=== PATIENT | female | born 1995 | race Caucasian/White ===

== ENCOUNTER → 2017-10-07 | Outpatient (REF) | payer OTHER ==
[2017-10-07 15:07] LABS: CHLAMYDIA DNA AMPLIFICATION NEGATIVE (NEGATIVE); GC DNA AMPLIFICATION NEGATIVE (NEGATIVE)
== END ==
LOC: M LAB REF 13:16
DX: N76.0 Acute vaginitis (principal)

== ENCOUNTER → 2018-03-02 | Outpatient (CLI) | payer OTHER | LOC: M SLEEP 19:40 | DX: R06.83 Snoring (principal) | CPT/HCPCS: 95810 ==

== ENCOUNTER → 2018-06-05 | Outpatient (REF) | payer OTHER ==
[2018-06-05 15:17] LABS: CHLAMYDIA DNA AMPLIFICATION NEGATIVE (NEGATIVE); GC DNA AMPLIFICATION NEGATIVE (NEGATIVE)
== END ==
LOC: M LAB REF 13:02
DX: Z11.3 Encounter for screening for infections with a predominantly sexual mode of transmission (principal)
CPT/HCPCS: 87591

== ENCOUNTER → 2018-10-13 | Outpatient (CLI) | payer OTHER ==
--- NOTE | 2018-10-13 11:11 | REP ---
Hepatobiliary scan and gallbladder ejection fraction: History: Mid epigastric pain. Nausea and diarrhea. Technique: 6.6 mCi of technetium-99m mebrofenin was injected and sequential anterior images are acquired. 65 minutes after the mebrofenin injection, the patient consumed 8 ounces Ensure and an additional 60 minutes of imaging was acquired. Regions of interest are plotted around the gallbladder. Findings: The initial hepatocellular parenchymal uptake phase is normal and homogeneous. Intra- and extra-hepatic bile ducts and duodenum are labeled by the 10 -minute image. The gallbladder is first labeled on the 10 -minute image. There is normal washout from the liver parenchyma into the gallbladder and small intestine on subsequent images. The gallbladder ejection fraction is 46 %. Values greater than 35 % are considered normal with this technique. Impression: Normal hepatobiliary scan and normal gallbladder ejection fraction. Electronically Signed by Sang Hu MD 10/13/2018 11:03 A
== END ==
LOC: M RAD 08:24
PROVIDERS: ATTEND Family Medicine
DX: R10.13 Epigastric pain (principal); R11.0 Nausea; R19.7 Diarrhea, unspecified; K83.8 Other specified diseases of biliary tract
CPT/HCPCS: 78227; A9537; J2805

== ENCOUNTER → 2020-12-02 | Outpatient (REF) | payer OTHER ==
[2020-12-02 18:45] LABS: FOLLICLE STIMULATING HORMONE 4.4 mIU/mL; FREE T4 0.86 NG/DL (0.76-1.46); LUTEINIZING HORMONE 13.4 mIU/mL; THYROID STIMULATING HORMONE 1.59 uIU/ML (0.358-3.740)
[2020-12-09 19:07] LABS: 17 HYDROXY PROGESTERONE 136 ng/dL (.); TESTOSTERONE FREE (DIRECT) 2.1 pg/mL (0.0-4.2)
== END ==
LOC: M PLALAB 14:45
PROVIDERS: ATTEND Advanced Practice Midwife
DX: Z12.4 Encounter for screening for malignant neoplasm of cervix (principal); Z31.9 Encounter for procreative management, unspecified; R87.612 Low grade squamous intraepithelial lesion on cytologic smear of cervix (LGSIL)
CPT/HCPCS: 36415; 82627; 83001; 83002; 83498; 84402; 84403; 84439; 84443; G0123; G0463

== ENCOUNTER → 2021-09-11 | Outpatient (CLI) | payer OTHER ==
[~2021-09-11] MED LIST: DULO1CAP6; IRON27TA2 PO; OMEP40CA5 PO; SUCR1TAB56 PO; VITA500C24 PO
== END ==
LOC: M LABSMTC 09:08
PROVIDERS: ATTEND Anesthesiology
DX: Z01.812 Encounter for preprocedural laboratory examination (principal); Z20.822 Contact with and (suspected) exposure to COVID-19

== ENCOUNTER → 2021-09-16 | Day surgery (SDC) | payer OTHER ==
[~2021-09-16] VITALS: Ht 160 cm; Wt 103.4 kg
[~2021-09-16] MED LIST changes: +NS 1,000 ML IV ONE
== END | disposition home or self-care (01) ==
LOC: M OPP 10:34
PROVIDERS: ATTEND Internal Medicine Gastroenterology
DX: R12 Heartburn (principal); Z53.8 Procedure and treatment not carried out for other reasons

== ENCOUNTER → 2021-10-21 | Outpatient (CLI) | payer OTHER ==
[~2021-10-21] MED LIST changes: -NS 1,000 ML IV ONE
[2021-10-21 13:42] LABS: HEMOGLOBIN 12.9 g/dl (12.0-15.5); MEAN CORPUSCULAR HEMOGLOBIN 27.4 pg (27.0-33.0); MEAN CORPUSCULAR HGB CONC 32.3 g/dl (32.0-36.5); MEAN CORPUSCULAR VOLUME 85.1 fl (80.0-96.0); PLATELET COUNT, AUTOMATED 326 10^3/uL (150-450); WHITE BLOOD COUNT 9.2 10^3/uL (4.0-10.0)
[2021-10-21 14:53] LABS: HEPATITIS C VIRUS ABY INDEX 0.1 INDEX (<0.8); HIV 1&2 SCREEN CENTAUR NEGATIVE (NEGATIVE)
[2021-10-21 23:18] LABS: GC DNA AMPLIFICATION NEGATIVE (NEGATIVE)
== END ==
LOC: M PLALAB 09:10
PROVIDERS: ATTEND Specialist
DX: Z34.01 Encounter for supervision of normal first pregnancy, first trimester (principal); Z36.89 Encounter for other specified antenatal screening

== ENCOUNTER → 2021-12-23 | Outpatient (CLI) | payer OTHER | LOC: M WHC 12:09 | PROVIDERS: ATTEND Specialist | DX: Z34.02 Encounter for supervision of normal first pregnancy, second trimester (principal); Z3A.19 19 weeks gestation of pregnancy ==

== ENCOUNTER → 2022-02-03 | Outpatient (CLI) | payer OTHER ==
[2022-02-03 13:36] LABS: HEMATOCRIT 35.7 % (36.0-47.0); HEMOGLOBIN 11.6 g/dl (12.0-15.5); MEAN CORPUSCULAR HEMOGLOBIN 27.3 pg (27.0-33.0); MEAN CORPUSCULAR HGB CONC 32.5 g/dl (32.0-36.5); PLATELET COUNT, AUTOMATED 313 10^3/uL (150-450); RED BLOOD COUNT 4.25 10^6/uL (4.00-5.40); WHITE BLOOD COUNT 12.3 10^3/uL (4.0-10.0)
== END ==
LOC: M PLALAB 09:51
PROVIDERS: ATTEND Obstetrics & Gynecology
DX: Z34.02 Encounter for supervision of normal first pregnancy, second trimester (principal); Z3A.25 25 weeks gestation of pregnancy

== ENCOUNTER → 2022-02-03 | Outpatient (CLI) | payer OTHER | LOC: M WHC 08:34 | PROVIDERS: ATTEND Obstetrics & Gynecology | DX: Z34.02 Encounter for supervision of normal first pregnancy, second trimester (principal); Z3A.25 25 weeks gestation of pregnancy ==

== ENCOUNTER → 2022-04-21 | Outpatient (REF) | payer OTHER | LOC: M SFHCWAGY 16:46 | PROVIDERS: ATTEND Obstetrics & Gynecology | DX: Z34.93 Encounter for supervision of normal pregnancy, unspecified, third trimester (principal) ==

== ENCOUNTER 2022-05-12 11:11 | Inpatient (IN) | payer OTHER ==
[2022-05-12] VITALS (16 sets, daily range): BP systolic 125–188; BP diastolic 73–99
[~2022-05-12] VITALS: Ht 160 cm; Wt 112.7 kg
[2022-05-12] MEDS ORDERED: CARA1TAB6 PO (11:53)
[2022-05-12] MEDS ORDERED: SERT-141 PO (11:54)
[2022-05-12] MEDS ORDERED: PRENTAB9 PO (11:54)
[2022-05-12 12:39] LABS: HEMATOCRIT 40.7 % (36.0-47.0); HEMOGLOBIN 13.3 g/dl (12.0-15.5); MEAN CORPUSCULAR HEMOGLOBIN 26.3 pg (27.0-33.0); MEAN CORPUSCULAR HGB CONC 32.7 g/dl (32.0-36.5); MEAN CORPUSCULAR VOLUME 80.4 fl (80.0-96.0); PLATELET COUNT, AUTOMATED 273 10^3/uL (150-450); RED BLOOD COUNT 5.06 10^6/uL (4.00-5.40); WHITE BLOOD COUNT 11.6 10^3/uL (4.0-10.0)
[2022-05-12 13:17] LABS: ALT/SGPT 18 U/L (12-78); BILIRUBIN,TOTAL 0.3 MG/DL (0.2-1.0); CREATININE FOR GFR 0.69 MG/DL (0.55-1.30); GLOMERULAR FILTRATION RATE > 60.0 (>60); LDH LACTATE DEHYDROGENASE 175 U/L (84-246)
[2022-05-12 13:33] LABS: TOTAL PROTEIN,RANDOM URINE 30.1 MG/DL (0.0-12.0)
[2022-05-12] MEDS ORDERED: CARBOPROST TROMETHAMINE 250 MCG/ML AMP IM PRN (15:15)
[2022-05-12] MEDS ORDERED: TRANEXAMIC ACID INJection 1,000 MG in NS 100 ML IV PRN (15:15)
[2022-05-12] MEDS ORDERED: OXYTOCIN DRIP 30 UNITS in IV 1 EA IV PRN ×4 (15:15)
[2022-05-12] MEDS ORDERED: LIDOCAINE 1% MDV 20ML VIAL INFIL PRN (15:15)
[2022-05-12] MEDS ORDERED: OXYTOCIN INJ 10 UNITS/ML VIAL (J2590) IM PRN (15:15)
[2022-05-12] MEDS: miSOPROStol 50MCG 1/2 TABLET PO SCH ×2 (16:24→20:19)
[2022-05-13] VITALS (50 sets, daily range): BP systolic 117–176; BP diastolic 56–106
[2022-05-13] MEDS: miSOPROStol 50MCG 1/2 TABLET PO SCH ×3 (00:14→08:22)
[2022-05-13] MEDS ORDERED: OXYTOCIN DRIP 30 UNITS in IV 1 EA IV SCH (13:30)
[2022-05-13] MEDS: LR 1,000 ML IV SCH ×2 (13:47→16:39)
[2022-05-13] MEDS ORDERED: FENTANYL 2MCG/ML ROPIVACAINE 0.2% IN 0.9% NACL 100ML IVBAG As Ordered ONE (16:47)
[2022-05-13] MEDS ORDERED: diphenhydrAMINE 50MG/ML VIAL IV PRN (16:55)
[2022-05-13] MEDS ORDERED: FENTANYL/ROPIVACAINE/NACL BAG 100 ML EPIDURAL SCH (16:55)
[2022-05-13] MEDS ORDERED: ePHEDrine SULFATE 25 MG/5 ML(5MG/ML) SYRINGE IVP PRN (16:55)
[2022-05-13] MEDS ORDERED: EPIDURAL/PCA KEYS XX PRN (16:55)
[2022-05-13] MEDS ORDERED: ONDANSETRON 4MG 2ML VIAL IV PRN (16:55)
[2022-05-13] MEDS ORDERED: LR 500 ML IV PRN (16:55)
[2022-05-13] MEDS ORDERED: NALOXONE INJ 0.4MG/1ML VIAL (J2310 PER 1MG) IV PRN (16:55)
[2022-05-14] VITALS (10 sets, daily range): BP systolic 124–159; BP diastolic 70–97
[2022-05-14] MEDS ORDERED: AZITHROMYCIN INJ 500 MG, VIAL MATE ADAPTER 1 EACH in NS 250 ML IV ONE (00:15)
[2022-05-14] MEDS ORDERED: ceFAZolin SOD 3 GM IV Place Holder IV ONE (00:15)
[2022-05-14] MEDS ORDERED: BICITRA 30ML SOLN UDC PO ONE (00:15)
[2022-05-14] MEDS ORDERED: ceFAZolin SOD 1 GM in D5W MINI-BAG PLUS 50 ML IV ONE (00:20)
[2022-05-14] MEDS ORDERED: ceFAZolin SOD 2 GM in IV 1 EA IV ONE (00:20)
[2022-05-14] MEDS ORDERED: OXYTOCIN INJ 10 UNITS/ML VIAL (J2590) As Ordered ONE (00:45)
[2022-05-14] MEDS ORDERED: LIDOCAINE 2% W/EPINEPHRINE 20ML VIAL **PRES FREE As Ordered ONE (00:45)
[2022-05-14] MEDS ORDERED: MORPHINE PRES-FREE INJ 10 MG/10 ML VIAL As Ordered ONE (00:45)
[2022-05-14] MEDS ORDERED: fentaNYL 100 MCG/2 ML INJECTION IV PRN (00:50)
[2022-05-14] MEDS ORDERED: MEPERIDINE INJ 25 MG/ML VIAL (J2175) IV PRN (00:50)
[2022-05-14] MEDS ORDERED: LR 1,000 ML IV SCH (00:50)
[2022-05-14] MEDS ORDERED: diphenhydrAMINE 50MG/ML VIAL IV PRN (00:50)
[2022-05-14] MEDS ORDERED: oxyCODONE 5MG TAB PO PRN (00:50)
[2022-05-14] MEDS: SLF 3 ML SYR IV SCH ×3 (00:50→16:50)
[2022-05-14] MEDS ORDERED: METOCLOPRAMIDE INJ 10MG/2ML VIAL (J2765 PER 1) IV PRN ×2 (00:50)
[2022-05-14] MEDS ORDERED: NALOXONE INJ 0.4MG/1ML VIAL (J2310 PER 1MG) IV PRN ×2 (00:50)
[2022-05-14] MEDS ORDERED: ONDANSETRON 4MG 2ML VIAL IV PRN ×2 (00:50→01:40)
[2022-05-14] MEDS ORDERED: **NOTE PATIENT COMMENT** MISC XX SCH (00:50)
[2022-05-14] MEDS ORDERED: KETOROLAC 60MG 2ML VIAL As Ordered ONE (01:39)
[2022-05-14] MEDS ORDERED: PERCOCET 5MG/325MG TAB PO PRN ×2 (01:40)
[2022-05-14] MEDS ORDERED: SIMETHICONE 80MG CHEW TAB PO PRN (01:40)
[2022-05-14] MEDS ORDERED: OXYTOCIN DRIP 30 UNITS in IV 1 EA IV SCH (01:40)
[2022-05-14] MEDS: LR 1,000 ML IV SCH ×3 (01:40→17:40)
[2022-05-14] MEDS ORDERED: RHOGAM 300 MCG (1500 IU) INJ (J2790) IM SCH (01:40)
[2022-05-14 01:46] LABS: CORD GAS ABE A -2.1; CORD GAS ABE V -4.3; CORD GAS HCO3 A 25.5 MEQ/L; CORD GAS HCO3 V 21.8 MEQ/L; CORD GAS O2 SAT A 58.9 %; CORD GAS O2 SAT V 90.6 %; CORD GAS PCO2 A 54.1 mmHg; CORD GAS PCO2 V 43.4 mmHg; CORD GAS PH A 7.291 UNITS; CORD GAS PH V 7.318 UNITS; CORD GAS PO2 A 24.7 mmHg; CORD GAS PO2 V 47.4 mmHg; CORD GAS SBC A 21.8 MEQ/L; CORD GAS SBC V 20.8 MEQ/L; CORD GAS TCO2 A 27.1 MEQ/L; CORD GAS TCO2 V 23.1 MEQ/L
[2022-05-14] MEDS ORDERED: LABETALOL 100MG/20ML VIAL As Ordered ONE (02:43)
[2022-05-14] MEDS ORDERED: LABETALOL 100MG/20ML VIAL IV STA (02:51)
[2022-05-14] MEDS: KETOROLAC 30 MG/ML 1ML VIAL IV SCH ×3 (08:54→20:43)
[2022-05-14] MEDS: PRENATAL VITAMINS CHEWABLE TABLET PO SCH (08:55)
[2022-05-14] MEDS: DOCUSATE SODIUM 100MG CAPSULE PO SCH ×2 (08:55→20:43)
[2022-05-14] MEDS: OMEPRAZOLE 20MG CAP PO SCH ×2 (09:00→20:44)
[2022-05-14 09:37] LABS: HEMATOCRIT 33.3 % (36.0-47.0); MEAN CORPUSCULAR HEMOGLOBIN 26.8 pg (27.0-33.0); MEAN CORPUSCULAR HGB CONC 32.4 g/dl (32.0-36.5); MEAN CORPUSCULAR VOLUME 82.6 fl (80.0-96.0); PLATELET COUNT, AUTOMATED 194 10^3/uL (150-450); RED BLOOD COUNT 4.03 10^6/uL (4.00-5.40); WHITE BLOOD COUNT 14.3 10^3/uL (4.0-10.0)
[2022-05-14 09:52] LABS: CREATININE FOR GFR 0.69 MG/DL (0.55-1.30); GLOMERULAR FILTRATION RATE > 60.0 (>60)
[2022-05-14 10:01] LABS: HEMOGLOBIN 10.8 g/dl (12.0-15.5)
[2022-05-14] MEDS ORDERED: SERTRALINE HCL 50 MG TAB PO ONE (13:05)
[2022-05-14] MEDS: SERTRALINE HCL 50 MG TAB PO SCH (13:46)
[2022-05-14] MEDS: SUCRALFATE 1 GM TAB PO SCH ×2 (17:00→20:59)
[2022-05-14] MEDS: ENOXAPARIN 40MG/0.4ML SYRINGE (J1650 PER 10MG) SC SCH (20:51)
[2022-05-15] VITALS (7 sets, daily range): BP systolic 133–153; BP diastolic 74–89
[2022-05-15] MEDS: LR 1,000 ML IV SCH (01:40)
[2022-05-15] MEDS: IBUPROFEN 800 MG TAB PO SCH ×3 (04:06→20:37)
[2022-05-15] MEDS: SUCRALFATE 1 GM TAB PO SCH ×3 (09:18→20:39)
[2022-05-15] MEDS: OMEPRAZOLE 20MG CAP PO SCH ×2 (09:19→20:36)
[2022-05-15] MEDS: DOCUSATE SODIUM 100MG CAPSULE PO SCH ×2 (09:20→20:36)
[2022-05-15] MEDS: PRENATAL VITAMINS CHEWABLE TABLET PO SCH (09:20)
[2022-05-15] MEDS: SERTRALINE HCL 50 MG TAB PO SCH (09:32)
[2022-05-15] MEDS: ENOXAPARIN 40MG/0.4ML SYRINGE (J1650 PER 10MG) SC SCH (20:37)
[2022-05-16] MEDS: IBUPROFEN 800 MG TAB PO SCH (04:36)
[2022-05-16 06:00] VITALS: BP 138/72
[2022-05-16] MEDS: SUCRALFATE 1 GM TAB PO SCH (08:20)
[2022-05-16] MEDS: OMEPRAZOLE 20MG CAP PO SCH (08:21)
[2022-05-16] MEDS: DOCUSATE SODIUM 100MG CAPSULE PO SCH (09:00)
[2022-05-16] MEDS: SERTRALINE HCL 50 MG TAB PO SCH (09:00)
[2022-05-16] MEDS ORDERED: SERTRALINE HCL 50 MG TAB PO SCH (09:00)
[2022-05-16] MEDS ORDERED: MEASLES,MUMPS,RUBELLA VACCINE INJ (MMR-II) (90707) SC.IMMUN ONE (09:00)
[2022-05-16] MEDS ORDERED: OMEPRAZOLE 20MG CAP PO SCH (09:00)
[2022-05-16] MEDS: PRENATAL VITAMINS CHEWABLE TABLET PO SCH (09:00)
[2022-05-16] MEDS ORDERED: INFLUENZA QUADRIVALENT PF VACCINE 0.5ML SYRINGE IM.IMMUN ONE (10:00)
[2022-05-16] MEDS ORDERED: OXYC-517 PO ×2 (10:15→10:49)
[2022-05-16] MEDS ORDERED: ACET-683 PO ×2 (10:15→10:49)
[2022-05-16] MEDS ORDERED: IBUP-1022 PO ×2 (10:15→10:49)
[2022-05-16] MEDS ORDERED: COLA100C5 PO ×2 (10:15→10:49)
[2022-05-16] MEDS ORDERED: DOCUSATE SODIUM 100MG CAPSULE PO PRN (10:40)
[2022-05-16] MEDS ORDERED: RHOGAM 300 MCG (1500 IU) INJ (J2790) IM SCH (10:40)
[2022-05-16] MEDS ORDERED: SIMETHICONE 80MG CHEW TAB PO PRN (10:40)
[2022-05-16] MEDS ORDERED: ACETAMINOPHEN 500 MG TAB PO PRN (10:40)
[2022-05-16] MEDS ORDERED: IBUPROFEN 600MG TAB PO PRN (10:40)
[2022-05-16] MEDS ORDERED: oxyCODONE 5MG TAB PO PRN (10:40)
[2022-05-16] MEDS ORDERED: NORE0.353 PO (10:51)
[2022-05-17] MEDS ORDERED: PRENATAL VITAMINS CHEWABLE TABLET PO SCH (09:00)
[2022-05-18] MEDS ORDERED: MEASLES,MUMPS,RUBELLA VACCINE INJ (MMR-II) (90707) SC.IMMUN ONE (09:00)
== END 2022-05-16 11:18 | disposition home or self-care (01) | DRG 772 ==
LOC: M LDO 11:11 → M LDI 15:48 → M OBS 05-14 03:12
PROVIDERS: ADMIT Advanced Practice Midwife; ATTEND Advanced Practice Midwife
PROC: 3E0DXGC Introduction of Other Therapeutic Substance into Mouth and Pharynx, External Approach (ICD-10-PCS; 2022-05-13)
PROC: 10907ZC Drainage of Amniotic Fluid, Therapeutic from Products of Conception, Via Natural or Artificial Opening (ICD-10-PCS; 2022-05-13)
PROC: 3E033VJ Introduction of Other Hormone into Peripheral Vein, Percutaneous Approach (ICD-10-PCS; 2022-05-13)
PROC: 10D00Z1 Extraction of Products of Conception, Low, Open Approach (ICD-10-PCS; principal; 2022-05-14 00:41)
DX: O14.94 Unspecified pre-eclampsia, complicating childbirth (principal); Z68.41 Body mass index [BMI] 40.0-44.9, adult; Z37.0 Single live birth; Z3A.39 39 weeks gestation of pregnancy; O62.0 Primary inadequate contractions; O61.0 Failed medical induction of labor; E66.9 Obesity, unspecified; O99.214 Obesity complicating childbirth